=== PATIENT | male | born 1980 | race Caucasian/White ===

== ENCOUNTER → 2016-03-11 15:47 | Outpatient (CLI) | payer OTHER ==
[~2016-03-11 15:47] MED LIST: IMURAN50 MG PO; LIALDA1.2 G PO; PREDNISONE10 MG PO
[2016-03-11 16:10] LABS: BASOPHILS 0.3 % (0.0-2.0); EOSINOPHILS 5.2 % (0-7); HEMATOCRIT 45.5 % (42.0-54.0); HEMOGLOBIN 15.6 g/dL (13.5-17.5); IMMATURE GRANULOCYTES 0.1 % (0-5); LYMPHOCYTES 22.1 % (15-50); MCH 33.5 pg (26.0-34.0); MCHC 34.3 g/dL (31.0-37.0); MCV 97.6 fL (80.0-100.0); MEAN PLATELET VOLUME 8.8 fL (7.4-10.4); MONOCYTES 7.6 % (2-11); NEUTROPHILS 64.7 % (40-80); PLATELET COUNT 214 10x3/uL (130-400); RBC 4.66 10x6/uL (4.20-6.10); RDW 12.8 % (11.5-14.5); WBC 7.7 10x3/uL (4.8-10.8)
[2016-03-11 16:35] LABS: ALBUMIN 3.9 g/dL (3.4-5.0); ALKALINE PHOSPHATASE 56 U/L (46-116); ALT (SGPT) 31 U/L (10-68); BILIRUBIN - TOTAL 0.33 mg/dL (0.2-1.3); CALC OSMOLALITY 288 mosm/kg (275-300); CALCIUM 8.8 mg/dL (8.5-10.1); CARBON DIOXIDE 32.4 mmol/L (21.0-32.0); CHLORIDE - SERUM 106 mmol/L (98-107); CREATININE - SERUM 1.1 mg/dL (0.6-1.3); GLUCOSE 94 mg/dL (74-106); POTASSIUM - SERUM 3.7 mmol/L (3.5-5.1); PROTEIN - SERUM 7.2 g/dL (6.4-8.2); SODIUM 144 mmol/L (136-145); UREA NITROGEN 18 mg/dL (7-18); eGFR NON AFRICAN AMERICAN 80 mL/min (90-120)
[2016-03-11 17:39] LABS: ERYTHROCYTE SEDIMENTATION RATE 2 mm/hr (0-15)
[2016-03-26 11:57] VITALS: BMI 24.9
== END | disposition home or self-care (01) ==
LOC: D.LAB 15:47
PROVIDERS: Internal Medicine Gastroenterology
DX: K51.90 Ulcerative colitis, unspecified, without complications (principal); R10.9 Unspecified abdominal pain; R19.7 Diarrhea, unspecified; K92.1 Melena

== ENCOUNTER 2016-03-26 10:51 | Day surgery (SDC) | payer OTHER ==
[~2016-03-26] VITALS: Ht 162.6 cm; Wt 65.9 kg
[2016-03-26 11:36] LABS: BASOPHILS 0 % (0.0-2.0); EOSINOPHILS 0.2 % (0-7); HEMATOCRIT 48.6 % (42.0-54.0); HEMOGLOBIN 16.9 g/dL (13.5-17.5); IMMATURE GRANULOCYTES 0.5 % (0-5); LYMPHOCYTES 22.3 % (15-50); MCH 33.7 pg (26.0-34.0); MCHC 34.8 g/dL (31.0-37.0); MCV 96.8 fL (80.0-100.0); MEAN PLATELET VOLUME 9.3 fL (7.4-10.4); MONOCYTES 6.6 % (2-11); NEUTROPHILS 70.4 % (40-80); PLATELET COUNT 278 10x3/uL (130-400); RBC 5.02 10x6/uL (4.20-6.10); RDW 12.8 % (11.5-14.5); WBC 10.2 10x3/uL (4.8-10.8)
[2016-03-26 11:48] LABS: CALC OSMOLALITY 277 mosm/kg (275-300); CALCIUM 9.4 mg/dL (8.5-10.1); CARBON DIOXIDE 29.9 mmol/L (21.0-32.0); CHLORIDE - SERUM 101 mmol/L (98-107); CREATININE - SERUM 1.1 mg/dL (0.6-1.3); GLUCOSE 93 mg/dL (74-106); POTASSIUM - SERUM 3.4 mmol/L (3.5-5.1); SODIUM 139 mmol/L (136-145); UREA NITROGEN 13 mg/dL (7-18); eGFR NON AFRICAN AMERICAN 80 mL/min (90-120)
[2016-03-26] MEDS ORDERED: PREDNISONE10 MG PO (11:51)
[2016-03-26] MEDS ORDERED: IMURAN50 MG PO (11:51)
[2016-03-26] MEDS ORDERED: LIALDA1.2 G PO (11:51)
[2016-03-26 11:57] VITALS: BP 130/87; Ht 162.6 cm; Wt 65.9 kg
--- NOTE | 2016-03-26 13:58 | NUR ---
1358 BACK FROM COLONOSCOPY AND VERY SLEEPY. RESP EVEN AND NONLABORED, DENIES PAIN. ENCOURAGED TO PASS AIR.
--- NOTE | 2016-03-26 14:06 | NUR ---
1405 PASSED AIR. FULL LIQUIDS SERVED.
--- NOTE | 2016-03-26 14:18 | NUR ---
1413 TOLERATED FULL LIQUIDS AND PASSED AIR.
--- NOTE | 2016-03-26 14:31 | NUR ---
1428 DAPHNEY DIET UP AND VOIDED.
--- NOTE | 2016-03-26 15:06 | NUR ---
1500 PATIENT DRESSED AND WAITING FOR DR. ASHRAF TO ROUND. NO NEEDS VOICED.
--- NOTE | 2016-03-26 15:42 | NUR ---
1530 UPDATED PATIENT AND FAMILY THAT MD WILL ROUND SHORTLY,NO NEEDS VOICED.
--- NOTE | 2016-03-26 17:14 | NUR ---
1605 DR. ASHRAF ROUNDED.
--- NOTE | 2016-03-26 17:14 | NUR ---
1625 IV DCD CATHETER INTACT.DISCHARGE INSTRUCTIONS GIVEN AND VERBALLY UNDERSTANDS.1630 TO HOME VIA W/C WITH .
--- NOTE | 2016-04-29 11:24 | OP ---
PATIENT NAME: TOYIN ANGLIN MEDICAL RECORD: [id number] :78 LOCATION:D.OPS ADMISSION DATE: SURGEON: ISABEL QUINONES MD DATE OF OPERATION: 03/26/2016 PROCEDURE: Colonoscopy with biopsy. [employer] OBJECTS CONSULTANT: Isabel Quinones MD SCOPE: Olympus video colonoscope. MEDICATIONS: Per TIVA. The patient has ulcerative colitis, arthritis, and has received 410 mg of propofol IV push for this procedure, O2 of 4 liters, lidocaine 100 mg IV push. INDICATION FOR THE PROCEDURE: Ulcerative colitis since 2008. The patient takes Lialda, azathioprine 100 mg a day and has had a few prednisone tapers over the last 12 months. FINDINGS: Informed consent was given. The patient was made comfortable with the above medications. After reaching an adequate level of sedation by slow IV push, the patient was placed on his left side. The rectal exam revealed good sphincter tone, no fissures or fistulas were appreciated, no external skin tags were seen. The colonoscope was advanced to the cecum where the ileocecal valve and appendiceal orifice were identified. The small bowel was intubated. Tissue was normal, but since this is a surveillance procedure, we biopsied the terminal ileum looking for any backwash ileitis. We also biopsied the right colon, transverse colon, left colon and rectum all separately. The patient only had inflammation within the rectal vault to a mild degree, but the tissue was very friable and bleeding occurred with biopsies. On retroflexion and final withdrawal of the scope, minimal internal hemorrhoids were appreciated. IMPRESSION: 1. 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 Except for the rectum, tissue did appear to be fairly normal. 2. Very mild internal hemorrhoids. PLAN: 1. At this point, we will ask the patient to continue his present medications until his pathology report has been received and reviewed and then it will be prudent to adjust his medicines. We will do this in a clinic visit in 2 weeks. 2. Multivitamin with folic acid. 3. No anti-inflammatory drugs if possible please. Return to clinic in 2 weeks. TRANSINT:[id number] Voice Confirmation ID: [id number] DOCUMENT ID: [id number] CC: Stormy Coy APRN OPERATIVE REPORT [id number] TOYIN ANGLIN BRENDA MD at 1124 CC: [id number] DICTATION DATE: 03/26/16 1341 SUPERVISOR POLICY CHANGE CLERKS: 03/26/16 1617 [facility] 03/26/16 [id number] [place] [address]
== END 2016-03-26 16:30 | disposition home or self-care (01) ==
LOC: D.OPS 10:51
PROVIDERS: Internal Medicine Gastroenterology
DX: K51.90 Ulcerative colitis, unspecified, without complications (principal); K62.89 Other specified diseases of anus and rectum; K64.8 Other hemorrhoids

== ENCOUNTER → 2016-07-03 11:51 | Outpatient (CLI) | payer OTHER ==
[2016-03-26 11:57] VITALS: BMI 24.9
[2016-07-03 12:18] LABS: BASOPHILS 0.3 % (0-2); EOSINOPHILS 4.9 % (0-7); HEMATOCRIT 43.4 % (42.0-54.0); HEMOGLOBIN 15.1 g/dL (13.5-17.5); IMMATURE GRANULOCYTES 0.1 % (0-5); LYMPHOCYTES 21.2 % (15-50); MCH 32.5 pg (26.0-34.0); MCHC 34.8 g/dL (31.0-37.0); MCV 93.3 fL (80.0-100.0); MEAN PLATELET VOLUME 8.9 fL (7.4-10.4); MONOCYTES 10.4 % (2-11); NEUTROPHILS 63.1 % (40-80); RBC 4.65 10x6/uL (4.20-6.10); RDW 12.2 % (11.5-14.5); WBC 6.7 10x3/uL (4.8-10.8)
[2016-07-03 12:36] LABS: ALBUMIN 3.8 g/dL (3.4-5.0); ALKALINE PHOSPHATASE 67 U/L (46-116); ALT (SGPT) 39 U/L (10-68); BILIRUBIN - TOTAL 0.58 mg/dL (0.2-1.3); CALC OSMOLALITY 286 mosm/kg (275-300); CALCIUM 8.6 mg/dL (8.5-10.1); CARBON DIOXIDE 33.3 mmol/L (21.0-32.0); CHLORIDE - SERUM 106 mmol/L (98-107); CREATININE - SERUM 1.1 mg/dL (0.6-1.3); GLUCOSE 97 mg/dL (74-106); POTASSIUM - SERUM 3.8 mmol/L (3.5-5.1); SODIUM 143 mmol/L (136-145); UREA NITROGEN 18 mg/dL (7-18); eGFR NON AFRICAN AMERICAN 80 mL/min (90-120)
[2016-07-03 12:40] LABS: PLATELET COUNT 219 10x3/uL (130-400)
[2016-07-03 14:53] LABS: ERYTHROCYTE SEDIMENTATION RATE 3 mm/hr (0-15)
== END | disposition home or self-care (01) ==
LOC: D.LAB 11:51
PROVIDERS: Internal Medicine Gastroenterology
DX: K51.90 Ulcerative colitis, unspecified, without complications (principal)

== ENCOUNTER → 2016-10-08 11:12 | Outpatient (CLI) | payer OTHER ==
[2016-03-26 11:57] VITALS: BMI 24.9
[2016-10-08 11:33] LABS: BASOPHILS 0.5 % (0-2); EOSINOPHILS 8.8 % (0-7); HEMATOCRIT 44.9 % (42.0-54.0); HEMOGLOBIN 15.6 g/dL (13.5-17.5); IMMATURE GRANULOCYTES 0.3 % (0-5); LYMPHOCYTES 33.8 % (15-50); MCH 31.8 pg (26.0-34.0); MCHC 34.7 g/dL (31.0-37.0); MCV 91.6 fL (80.0-100.0); MEAN PLATELET VOLUME 8.8 fL (7.4-10.4); MONOCYTES 8.8 % (2-11); NEUTROPHILS 47.8 % (40-80); PLATELET COUNT 210 10x3/uL (130-400); RDW 12.3 % (11.5-14.5); WBC 5.9 10x3/uL (4.8-10.8)
== END | disposition home or self-care (01) ==
LOC: D.LAB 08:00
PROVIDERS: Internal Medicine Gastroenterology
DX: K51.90 Ulcerative colitis, unspecified, without complications (principal)

== ENCOUNTER → 2016-10-15 14:12 | Outpatient (CLI) | payer OTHER ==
[2016-03-26 11:57] VITALS: BMI 24.9
[2016-10-15 14:35] LABS: BASOPHILS 0.3 % (0-2); EOSINOPHILS 9.5 % (0-7); HEMATOCRIT 43.6 % (42.0-54.0); HEMOGLOBIN 14.9 g/dL (13.5-17.5); IMMATURE GRANULOCYTES 0.1 % (0-5); LYMPHOCYTES 25.1 % (15-50); MCH 31.7 pg (26.0-34.0); MCHC 34.2 g/dL (31.0-37.0); MCV 92.8 fL (80.0-100.0); PLATELET COUNT 205 10x3/uL (130-400); RDW 12.2 % (11.5-14.5); WBC 7.3 10x3/uL (4.8-10.8)
== END | disposition home or self-care (01) ==
LOC: D.LAB 08:00
PROVIDERS: Internal Medicine Gastroenterology
DX: K51.90 Ulcerative colitis, unspecified, without complications (principal)

== ENCOUNTER → 2016-10-22 15:36 | Outpatient (CLI) | payer OTHER ==
[2016-03-26 11:57] VITALS: BMI 24.9
[2016-10-22 15:53] LABS: BASOPHILS 0.3 % (0-2); EOSINOPHILS 13.1 % (0-7); HEMATOCRIT 43.7 % (42.0-54.0); HEMOGLOBIN 15.1 g/dL (13.5-17.5); IMMATURE GRANULOCYTES 0.2 % (0-5); MCH 31.7 pg (26.0-34.0); MCHC 34.6 g/dL (31.0-37.0); MCV 91.8 fL (80.0-100.0); MEAN PLATELET VOLUME 8.9 fL (7.4-10.4); MONOCYTES 7.7 % (2-11); NEUTROPHILS 49.7 % (40-80); PLATELET COUNT 242 10x3/uL (130-400); RBC 4.76 10x6/uL (4.20-6.10); RDW 12.4 % (11.5-14.5)
== END | disposition home or self-care (01) ==
LOC: D.LAB 08:00
PROVIDERS: Internal Medicine Gastroenterology
DX: K51.90 Ulcerative colitis, unspecified, without complications (principal)

== ENCOUNTER → 2016-10-29 17:12 | Outpatient (CLI) | payer OTHER ==
[2016-03-26 11:57] VITALS: BMI 24.9
[2016-10-29 17:46] LABS: BASOPHILS 0.3 % (0-2); EOSINOPHILS 11.1 % (0-7); HEMATOCRIT 42.1 % (42.0-54.0); HEMOGLOBIN 14.7 g/dL (13.5-17.5); IMMATURE GRANULOCYTES 0.3 % (0-5); LYMPHOCYTES 32.6 % (15-50); MCH 32.2 pg (26.0-34.0); MCHC 34.9 g/dL (31.0-37.0); MCV 92.3 fL (80.0-100.0); MEAN PLATELET VOLUME 9.1 fL (7.4-10.4); MONOCYTES 6.2 % (2-11); NEUTROPHILS 49.5 % (40-80); PLATELET COUNT 268 10x3/uL (130-400); RBC 4.56 10x6/uL (4.20-6.10); RDW 12.6 % (11.5-14.5); WBC 6.4 10x3/uL (4.8-10.8)
== END | disposition home or self-care (01) ==
LOC: D.LAB 08:00
PROVIDERS: Internal Medicine Gastroenterology
DX: K51.90 Ulcerative colitis, unspecified, without complications (principal)

== ENCOUNTER → 2016-11-12 17:05 | Outpatient (CLI) | payer OTHER ==
[2016-03-26 11:57] VITALS: BMI 24.9
[2016-11-12 17:28] LABS: BASOPHILS 0.3 % (0-2); EOSINOPHILS 9.7 % (0-7); HEMATOCRIT 43.8 % (42.0-54.0); HEMOGLOBIN 15.3 g/dL (13.5-17.5); IMMATURE GRANULOCYTES 0.1 % (0-5); LYMPHOCYTES 25.5 % (15-50); MCH 32.3 pg (26.0-34.0); MCHC 34.9 g/dL (31.0-37.0); MCV 92.4 fL (80.0-100.0); MONOCYTES 7.5 % (2-11); NEUTROPHILS 56.9 % (40-80); PLATELET COUNT 245 10x3/uL (130-400); RBC 4.74 10x6/uL (4.20-6.10); RDW 12.6 % (11.5-14.5); WBC 7.3 10x3/uL (4.8-10.8)
== END | disposition home or self-care (01) ==
LOC: D.LAB 08:00
PROVIDERS: Internal Medicine Gastroenterology
DX: K51.90 Ulcerative colitis, unspecified, without complications (principal)

== ENCOUNTER → 2016-11-26 10:33 | Outpatient (CLI) | payer OTHER ==
[2016-03-26 11:57] VITALS: BMI 24.9
[2016-11-26 10:55] LABS: BASOPHILS 0.3 % (0-2); EOSINOPHILS 10.6 % (0-7); IMMATURE GRANULOCYTES 0.2 % (0-5); LYMPHOCYTES 24.9 % (15-50); MCH 32.4 pg (26.0-34.0); MCHC 34.9 g/dL (31.0-37.0); MCV 92.9 fL (80.0-100.0); MEAN PLATELET VOLUME 8.5 fL (7.4-10.4); MONOCYTES 8.5 % (2-11); NEUTROPHILS 55.5 % (40-80); PLATELET COUNT 233 10x3/uL (130-400); RBC 4.63 10x6/uL (4.20-6.10); RDW 12.7 % (11.5-14.5); WBC 6.6 10x3/uL (4.8-10.8)
== END | disposition home or self-care (01) ==
LOC: D.LAB 08:00
PROVIDERS: Internal Medicine Gastroenterology
DX: K51.90 Ulcerative colitis, unspecified, without complications (principal)

== ENCOUNTER → 2016-12-10 12:17 | Outpatient (CLI) | payer OTHER ==
[2016-03-26 11:57] VITALS: BMI 24.9
[2016-12-10 12:44] LABS: BASOPHILS 0.6 % (0-2); EOSINOPHILS 7.2 % (0-7); HEMATOCRIT 43.1 % (42.0-54.0); HEMOGLOBIN 15.1 g/dL (13.5-17.5); IMMATURE GRANULOCYTES 0.2 % (0-5); LYMPHOCYTES 33.8 % (15-50); MCH 32.5 pg (26.0-34.0); MCV 92.7 fL (80.0-100.0); MEAN PLATELET VOLUME 8.7 fL (7.4-10.4); MONOCYTES 7.2 % (2-11); PLATELET COUNT 224 10x3/uL (130-400); RBC 4.65 10x6/uL (4.20-6.10); RDW 12.8 % (11.5-14.5); WBC 4.9 10x3/uL (4.8-10.8)
== END | disposition home or self-care (01) ==
LOC: D.LAB 08:00
PROVIDERS: Internal Medicine Gastroenterology
DX: K51.90 Ulcerative colitis, unspecified, without complications (principal)

== ENCOUNTER → 2016-12-24 10:02 | Outpatient (CLI) | payer OTHER ==
[2016-03-26 11:57] VITALS: BMI 24.9
[2016-12-24 10:40] LABS: BASOPHILS 0.6 % (0-2); EOSINOPHILS 8.1 % (0-7); HEMATOCRIT 46.5 % (42.0-54.0); HEMOGLOBIN 16.2 g/dL (13.5-17.5); IMMATURE GRANULOCYTES 0.2 % (0-5); LYMPHOCYTES 37.5 % (15-50); MCH 32.5 pg (26.0-34.0); MCHC 34.8 g/dL (31.0-37.0); MCV 93.2 fL (80.0-100.0); MEAN PLATELET VOLUME 9.2 fL (7.4-10.4); MONOCYTES 11.6 % (2-11); PLATELET COUNT 236 10x3/uL (130-400); RBC 4.99 10x6/uL (4.20-6.10); RDW 12.4 % (11.5-14.5); WBC 4.7 10x3/uL (4.8-10.8)
== END | disposition home or self-care (01) ==
LOC: D.LAB 08:00
PROVIDERS: Internal Medicine Gastroenterology
DX: K51.90 Ulcerative colitis, unspecified, without complications (principal)

== ENCOUNTER → 2017-02-26 09:23 | Outpatient (CLI) | payer OTHER ==
[2016-03-26 11:57] VITALS: BMI 24.9
[2017-02-26 10:06] LABS: ALBUMIN 4.2 g/dL (3.4-5.0); ALKALINE PHOSPHATASE 60 U/L (46-116); ALT (SGPT) 45 U/L (10-68); BILIRUBIN - TOTAL 0.35 mg/dL (0.2-1.3); CALC OSMOLALITY 279 mosm/kg (275-300); CALCIUM 9.1 mg/dL (8.5-10.1); CARBON DIOXIDE 31.4 mmol/L (21.0-32.0); CHLORIDE - SERUM 101 mmol/L (98-107); CREATININE - SERUM 1.1 mg/dL (0.6-1.3); GLUCOSE 103 mg/dL (74-106); POTASSIUM - SERUM 4.3 mmol/L (3.5-5.1); PROTEIN - SERUM 7.9 g/dL (6.4-8.2); SODIUM 140 mmol/L (136-145); UREA NITROGEN 16 mg/dL (7-18); eGFR NON AFRICAN AMERICAN 80 mL/min (90-120)
[2017-02-26 10:50] LABS: ERYTHROCYTE SEDIMENTATION RATE 1 mm/hr (0-15)
== END | disposition home or self-care (01) ==
LOC: D.LAB 09:23
PROVIDERS: Internal Medicine Gastroenterology
DX: K51.90 Ulcerative colitis, unspecified, without complications (principal)

== ENCOUNTER → 2017-03-30 11:26 | Outpatient (CLI) | payer OTHER ==
[2016-03-26 11:57] VITALS: BMI 24.9
[2017-03-30 12:06] LABS: ALBUMIN 4.3 g/dL (3.4-5.0); ALKALINE PHOSPHATASE 55 U/L (46-116); ALT (SGPT) 25 U/L (10-68); CALC OSMOLALITY 284 mosm/kg (275-300); CALCIUM 8.7 mg/dL (8.5-10.1); CARBON DIOXIDE 29.4 mmol/L (21.0-32.0); CHLORIDE - SERUM 104 mmol/L (98-107); CREATININE - SERUM 0.9 mg/dL (0.6-1.3); GLUCOSE 102 mg/dL (74-106); POTASSIUM - SERUM 4.1 mmol/L (3.5-5.1); PROTEIN - SERUM 7.6 g/dL (6.4-8.2); SODIUM 142 mmol/L (136-145); UREA NITROGEN 19 mg/dL (7-18); eGFR NON AFRICAN AMERICAN > 90 mL/min (90-120)
[2017-03-30 12:46] LABS: ERYTHROCYTE SEDIMENTATION RATE 1 mm/hr (0-15)
== END | disposition home or self-care (01) ==
LOC: D.LAB 11:26
PROVIDERS: Internal Medicine Gastroenterology
DX: K51.90 Ulcerative colitis, unspecified, without complications (principal)

== ENCOUNTER → 2017-05-05 12:53 | Outpatient (CLI) | payer OTHER ==
[2016-03-26 11:57] VITALS: BMI 24.9
[2017-05-05 13:43] LABS: ALBUMIN 4.2 g/dL (3.4-5.0); ALKALINE PHOSPHATASE 62 U/L (46-116); ALT (SGPT) 25 U/L (10-68); BILIRUBIN - TOTAL 0.38 mg/dL (0.2-1.3); CALCIUM 8.9 mg/dL (8.5-10.1); CARBON DIOXIDE 30.1 mmol/L (21.0-32.0); CHLORIDE - SERUM 105 mmol/L (98-107); CREATININE - SERUM 1.1 mg/dL (0.6-1.3); POTASSIUM - SERUM 3.8 mmol/L (3.5-5.1); PROTEIN - SERUM 7.6 g/dL (6.4-8.2); SODIUM 144 mmol/L (136-145); UREA NITROGEN 22 mg/dL (7-18); eGFR NON AFRICAN AMERICAN 80 mL/min (90-120)
[2017-05-05 13:49] LABS: CALC OSMOLALITY 287 mosm/kg (275-300); GLUCOSE 55 mg/dL (74-106)
[2017-05-05 14:13] LABS: ERYTHROCYTE SEDIMENTATION RATE 1 mm/hr (0-15)
== END | disposition home or self-care (01) ==
LOC: D.LAB 12:53
PROVIDERS: Internal Medicine Gastroenterology
DX: K51.90 Ulcerative colitis, unspecified, without complications (principal)

== ENCOUNTER → 2017-05-27 14:34 | Outpatient (CLI) | payer OTHER ==
[2016-03-26 11:57] VITALS: BMI 24.9
[2017-05-27 15:11] LABS: ALBUMIN 3.9 g/dL (3.4-5.0); ALKALINE PHOSPHATASE 59 U/L (46-116); ALT (SGPT) 33 U/L (10-68); CALC OSMOLALITY 283 mosm/kg (275-300); CARBON DIOXIDE 29.5 mmol/L (21.0-32.0); CHLORIDE - SERUM 106 mmol/L (98-107); GLUCOSE 96 mg/dL (74-106); POTASSIUM - SERUM 4.1 mmol/L (3.5-5.1); PROTEIN - SERUM 7.5 g/dL (6.4-8.2); SODIUM 141 mmol/L (136-145); UREA NITROGEN 22 mg/dL (7-18); eGFR NON AFRICAN AMERICAN 89 mL/min (90-120)
[2017-05-27 15:58] LABS: ERYTHROCYTE SEDIMENTATION RATE 5 mm/hr (0-15)
== END | disposition home or self-care (01) ==
LOC: D.LAB 14:34
PROVIDERS: Internal Medicine Gastroenterology
DX: K51.90 Ulcerative colitis, unspecified, without complications (principal)

== ENCOUNTER → 2017-06-25 10:36 | Outpatient (CLI) | payer OTHER ==
[2016-03-26 11:57] VITALS: BMI 24.9
[2017-06-25 11:26] LABS: ALBUMIN 3.7 g/dL (3.4-5.0); ALKALINE PHOSPHATASE 59 U/L (46-116); ALT (SGPT) 23 U/L (10-68); BILIRUBIN - TOTAL 0.25 mg/dL (0.2-1.3); CALC OSMOLALITY 282 mosm/kg (275-300); CALCIUM 8.6 mg/dL (8.5-10.1); CARBON DIOXIDE 27.9 mmol/L (21.0-32.0); CHLORIDE - SERUM 103 mmol/L (98-107); GLUCOSE 92 mg/dL (74-106); POTASSIUM - SERUM 4.2 mmol/L (3.5-5.1); PROTEIN - SERUM 7.8 g/dL (6.4-8.2); SODIUM 141 mmol/L (136-145); UREA NITROGEN 19 mg/dL (7-18); eGFR NON AFRICAN AMERICAN 89 mL/min (90-120)
[2017-06-25 12:10] LABS: ERYTHROCYTE SEDIMENTATION RATE 9 mm/hr (0-15)
== END | disposition home or self-care (01) ==
LOC: D.LAB 10:36
PROVIDERS: Internal Medicine Gastroenterology
DX: K51.90 Ulcerative colitis, unspecified, without complications (principal)

== ENCOUNTER → 2017-07-28 13:53 | Outpatient (CLI) | payer OTHER ==
[2016-03-26 11:57] VITALS: BMI 24.9
[2017-07-28 14:38] LABS: ALBUMIN 3.6 g/dL (3.4-5.0); ALKALINE PHOSPHATASE 70 U/L (46-116); ALT (SGPT) 25 U/L (10-68); BILIRUBIN - TOTAL 0.25 mg/dL (0.2-1.3); CALC OSMOLALITY 283 mosm/kg (275-300); CALCIUM 8.7 mg/dL (8.5-10.1); CARBON DIOXIDE 29.1 mmol/L (21.0-32.0); CHLORIDE - SERUM 103 mmol/L (98-107); GLUCOSE 98 mg/dL (74-106); PROTEIN - SERUM 6.9 g/dL (6.4-8.2); SODIUM 142 mmol/L (136-145); UREA NITROGEN 15 mg/dL (7-18); eGFR NON AFRICAN AMERICAN 89 mL/min (90-120)
[2017-07-28 15:36] LABS: ERYTHROCYTE SEDIMENTATION RATE 8 mm/hr (0-15)
== END | disposition home or self-care (01) ==
LOC: D.LAB 13:53
PROVIDERS: Internal Medicine Gastroenterology
DX: K51.90 Ulcerative colitis, unspecified, without complications (principal)

== ENCOUNTER → 2017-09-08 14:47 | Outpatient (CLI) | payer OTHER ==
[2016-03-26 11:57] VITALS: BMI 24.9
[2017-09-08 15:26] LABS: BASOPHILS 0.6 % (0-2); EOSINOPHILS 7.3 % (0-7); HEMATOCRIT 42.2 % (42.0-54.0); HEMOGLOBIN 14.9 g/dL (13.5-17.5); IMMATURE GRANULOCYTES 0.2 % (0-5); LYMPHOCYTES 33.6 % (15-50); MCH 32.2 pg (26.0-34.0); MCHC 35.3 g/dL (31.0-37.0); MCV 91.1 fL (80.0-100.0); MEAN PLATELET VOLUME 9.2 fL (7.4-10.4); MONOCYTES 7.3 % (2-11); PLATELET COUNT 246 10x3/uL (130-400); RBC 4.63 10x6/uL (4.20-6.10); RDW 12.6 % (11.5-14.5); WBC 6.5 10x3/uL (4.8-10.8)
[2017-09-08 15:48] LABS: ALBUMIN 3.9 g/dL (3.4-5.0); ALKALINE PHOSPHATASE 69 U/L (46-116); ALT (SGPT) 23 U/L (10-68); BILIRUBIN - TOTAL 0.34 mg/dL (0.2-1.3); CALC OSMOLALITY 284 mosm/kg (275-300); CALCIUM 8.4 mg/dL (8.5-10.1); CARBON DIOXIDE 28.9 mmol/L (21.0-32.0); CHLORIDE - SERUM 107 mmol/L (98-107); GLUCOSE 82 mg/dL (74-106); POTASSIUM - SERUM 4.1 mmol/L (3.5-5.1); PROTEIN - SERUM 7.2 g/dL (6.4-8.2); SODIUM 143 mmol/L (136-145); UREA NITROGEN 16 mg/dL (7-18); eGFR NON AFRICAN AMERICAN 89 mL/min (90-120)
== END | disposition home or self-care (01) ==
LOC: D.LAB 14:47
PROVIDERS: Internal Medicine Gastroenterology
DX: K51.90 Ulcerative colitis, unspecified, without complications (principal)

== ENCOUNTER → 2017-11-03 15:36 | Outpatient (CLI) | payer OTHER ==
[2016-03-26 11:57] VITALS: BMI 24.9
[2017-11-03 16:28] LABS: BASOPHILS 0.4 % (0-2); EOSINOPHILS 7.5 % (0-7); HEMOGLOBIN 15.6 g/dL (13.5-17.5); IMMATURE GRANULOCYTES 0.1 % (0-5); LYMPHOCYTES 26.5 % (15-50); MCH 32.1 pg (26.0-34.0); MCHC 35.5 g/dL (31.0-37.0); MCV 90.5 fL (80.0-100.0); MEAN PLATELET VOLUME 9.2 fL (7.4-10.4); MONOCYTES 7.6 % (2-11); NEUTROPHILS 57.9 % (40-80); PLATELET COUNT 226 10x3/uL (130-400); RBC 4.86 10x6/uL (4.20-6.10); RDW 12.4 % (11.5-14.5); WBC 7.5 10x3/uL (4.8-10.8)
[2017-11-03 16:54] LABS: ALBUMIN 3.9 g/dL (3.4-5.0); ALKALINE PHOSPHATASE 59 U/L (46-116); ALT (SGPT) 33 U/L (10-68); BILIRUBIN - TOTAL 0.33 mg/dL (0.2-1.3); CALC OSMOLALITY 278 mosm/kg (275-300); CALCIUM 8.3 mg/dL (8.5-10.1); CARBON DIOXIDE 25.9 mmol/L (21.0-32.0); CHLORIDE - SERUM 105 mmol/L (98-107); GLUCOSE 92 mg/dL (74-106); POTASSIUM - SERUM 4.1 mmol/L (3.5-5.1); PROTEIN - SERUM 7.3 g/dL (6.4-8.2); SODIUM 139 mmol/L (136-145); UREA NITROGEN 15 mg/dL (7-18); eGFR NON AFRICAN AMERICAN 89 mL/min (90-120)
== END | disposition home or self-care (01) ==
LOC: D.LAB 08-19 11:45
PROVIDERS: Internal Medicine Gastroenterology
DX: K51.90 Ulcerative colitis, unspecified, without complications (principal)

== ENCOUNTER → 2017-11-23 08:49 | Outpatient (CLI) | payer OTHER ==
[2016-03-26 11:57] VITALS: BMI 24.9
[2017-11-23 09:03] LABS: BASOPHILS 0.6 % (0-2); EOSINOPHILS 9.8 % (0-7); HEMATOCRIT 45.3 % (42.0-54.0); HEMOGLOBIN 15.8 g/dL (13.5-17.5); IMMATURE GRANULOCYTES 0.2 % (0-5); LYMPHOCYTES 29.5 % (15-50); MCH 31.8 pg (26.0-34.0); MCHC 34.9 g/dL (31.0-37.0); MCV 91.1 fL (80.0-100.0); MEAN PLATELET VOLUME 8.8 fL (7.4-10.4); MONOCYTES 11.1 % (2-11); NEUTROPHILS 48.8 % (40-80); PLATELET COUNT 229 10x3/uL (130-400); RBC 4.97 10x6/uL (4.20-6.10); RDW 12.7 % (11.5-14.5); WBC 5.3 10x3/uL (4.8-10.8)
[2017-11-23 09:22] LABS: ALBUMIN 3.9 g/dL (3.4-5.0); ALKALINE PHOSPHATASE 51 U/L (46-116); ALT (SGPT) 25 U/L (10-68); CALC OSMOLALITY 276 mosm/kg (275-300); CALCIUM 8.5 mg/dL (8.5-10.1); CARBON DIOXIDE 28.5 mmol/L (21.0-32.0); CHLORIDE - SERUM 104 mmol/L (98-107); CREATININE - SERUM 1.1 mg/dL (0.6-1.3); GLUCOSE 101 mg/dL (74-106); POTASSIUM - SERUM 3.9 mmol/L (3.5-5.1); PROTEIN - SERUM 7.6 g/dL (6.4-8.2); SODIUM 138 mmol/L (136-145); UREA NITROGEN 15 mg/dL (7-18); eGFR NON AFRICAN AMERICAN 80 mL/min (90-120)
== END | disposition home or self-care (01) ==
LOC: D.LAB 08:49
PROVIDERS: Internal Medicine Gastroenterology
DX: K51.90 Ulcerative colitis, unspecified, without complications (principal)

== ENCOUNTER → 2018-01-13 15:28 | Outpatient (CLI) | payer OTHER ==
[2016-03-26 11:57] VITALS: BMI 24.9
[2018-01-13 16:12] LABS: BASOPHILS 0.4 % (0-2); EOSINOPHILS 6.7 % (0-7); HEMATOCRIT 43.7 % (42.0-54.0); HEMOGLOBIN 15.2 g/dL (13.5-17.5); IMMATURE GRANULOCYTES 0.1 % (0-5); LYMPHOCYTES 24.6 % (15-50); MCH 32.1 pg (26.0-34.0); MCHC 34.8 g/dL (31.0-37.0); MCV 92.2 fL (80.0-100.0); MONOCYTES 6.7 % (2-11); NEUTROPHILS 61.5 % (40-80); PLATELET COUNT 268 10x3/uL (130-400); RBC 4.74 10x6/uL (4.20-6.10); RDW 12.6 % (11.5-14.5); WBC 8.1 10x3/uL (4.8-10.8)
[2018-01-13 16:27] LABS: ALBUMIN 3.9 g/dL (3.4-5.0); ALKALINE PHOSPHATASE 61 U/L (46-116); ALT (SGPT) 29 U/L (10-68); BILIRUBIN - TOTAL 0.29 mg/dL (0.2-1.3); CALC OSMOLALITY 282 mosm/kg (275-300); CALCIUM 8.8 mg/dL (8.5-10.1); CARBON DIOXIDE 30.8 mmol/L (21.0-32.0); CHLORIDE - SERUM 105 mmol/L (98-107); CREATININE - SERUM 1.1 mg/dL (0.6-1.3); GLUCOSE 107 mg/dL (74-106); POTASSIUM - SERUM 4.2 mmol/L (3.5-5.1); PROTEIN - SERUM 7.4 g/dL (6.4-8.2); SODIUM 141 mmol/L (136-145); UREA NITROGEN 17 mg/dL (7-18); eGFR NON AFRICAN AMERICAN 79 mL/min (90-120)
== END | disposition home or self-care (01) ==
LOC: D.LABREF 15:28
PROVIDERS: Internal Medicine Gastroenterology
DX: K51.90 Ulcerative colitis, unspecified, without complications (principal)

== ENCOUNTER → 2018-02-09 10:56 | Outpatient (CLI) | payer OTHER ==
[2016-03-26 11:57] VITALS: BMI 24.9
[2018-02-09 11:24] LABS: BASOPHILS 1.1 % (0-2); EOSINOPHILS 7.4 % (0-7); HEMATOCRIT 44.7 % (42.0-54.0); HEMOGLOBIN 15.7 g/dL (13.5-17.5); IMMATURE GRANULOCYTES 0.2 % (0-5); LYMPHOCYTES 33.7 % (15-50); MCH 32.3 pg (26.0-34.0); MCHC 35.1 g/dL (31.0-37.0); MEAN PLATELET VOLUME 8.9 fL (7.4-10.4); MONOCYTES 9.1 % (2-11); NEUTROPHILS 48.5 % (40-80); PLATELET COUNT 243 10x3/uL (130-400); RBC 4.86 10x6/uL (4.20-6.10); RDW 12.6 % (11.5-14.5); WBC 5.7 10x3/uL (4.8-10.8)
[2018-02-09 11:43] LABS: ALBUMIN 3.7 g/dL (3.4-5.0); ALKALINE PHOSPHATASE 60 U/L (46-116); ALT (SGPT) 41 U/L (10-68); BILIRUBIN - TOTAL 0.37 mg/dL (0.2-1.3); CALC OSMOLALITY 286 mosm/kg (275-300); CARBON DIOXIDE 29.1 mmol/L (21.0-32.0); CHLORIDE - SERUM 105 mmol/L (98-107); GLUCOSE 93 mg/dL (74-106); POTASSIUM - SERUM 4.2 mmol/L (3.5-5.1); PROTEIN - SERUM 7.6 g/dL (6.4-8.2); SODIUM 143 mmol/L (136-145); UREA NITROGEN 18 mg/dL (7-18); eGFR NON AFRICAN AMERICAN 89 mL/min (90-120)
== END | disposition home or self-care (01) ==
LOC: D.LAB 10:56
PROVIDERS: Internal Medicine Gastroenterology
DX: K51.90 Ulcerative colitis, unspecified, without complications (principal)

== ENCOUNTER → 2018-03-29 13:44 | Outpatient (CLI) | payer OTHER ==
[2016-03-26 11:57] VITALS: BMI 24.9
[2018-03-29 14:04] LABS: BASOPHILS 0.3 % (0-2); EOSINOPHILS 5.2 % (0-7); HEMATOCRIT 43.5 % (42.0-54.0); HEMOGLOBIN 15.2 g/dL (13.5-17.5); LYMPHOCYTES 24.3 % (15-50); MCH 31.8 pg (26.0-34.0); MCHC 34.9 g/dL (31.0-37.0); MEAN PLATELET VOLUME 8.6 fL (7.4-10.4); MONOCYTES 6.2 % (2-11); PLATELET COUNT 225 10x3/uL (130-400); RBC 4.78 10x6/uL (4.20-6.10); RDW 12.5 % (11.5-14.5); WBC 6.6 10x3/uL (4.8-10.8)
[2018-03-29 14:23] LABS: ALBUMIN 3.9 g/dL (3.4-5.0); ALKALINE PHOSPHATASE 58 U/L (46-116); ALT (SGPT) 26 U/L (10-68); BILIRUBIN - TOTAL 0.37 mg/dL (0.2-1.3); CALC OSMOLALITY 282 mosm/kg (275-300); CALCIUM 8.5 mg/dL (8.5-10.1); CARBON DIOXIDE 29.1 mmol/L (21.0-32.0); CHLORIDE - SERUM 104 mmol/L (98-107); CREATININE - SERUM 1.1 mg/dL (0.6-1.3); GLUCOSE 110 mg/dL (74-106); POTASSIUM - SERUM 3.5 mmol/L (3.5-5.1); PROTEIN - SERUM 7.7 g/dL (6.4-8.2); SODIUM 141 mmol/L (136-145); UREA NITROGEN 15 mg/dL (7-18); eGFR NON AFRICAN AMERICAN 79 mL/min (90-120)
== END | disposition home or self-care (01) ==
LOC: D.LAB 13:44
PROVIDERS: Internal Medicine Gastroenterology
DX: K51.90 Ulcerative colitis, unspecified, without complications (principal)

== ENCOUNTER 2018-04-14 09:48 | Day surgery (SDC) | payer OTHER ==
[~2018-04-14] VITALS: Ht 167.6 cm; Wt 68.6 kg
--- NOTE | ~2018-04-14 | OP ---
PATIENT NAME: TOYIN ANGLIN MEDICAL RECORD: [id number] :78 LOCATION:[facility] ADMISSION DATE: SURGEON: ISABEL QUINONES MD DATE OF OPERATION: 04/14/2018 PROCEDURE: EGD with balloon dilatation, EGD with biopsy. BLUNGER: Isabel Quinones MD SCOPE: Olympus video gastroscope and a CRE Microvasive balloon from 45- to 60-English. MEDICATIONS FOR THIS PROCEDURE: Propofol 190 mg IV push, O2 at 4 liters. INDICATION FOR THE PROCEDURE: Cough associated with gastroesophageal reflux disease, dysphagia. FINDINGS: Informed consent was given. The patient was made comfortable with the above medications. After reaching an adequate level of sedation by slow IV push, the patient was placed on his left side. The endoscope was then advanced under direct visualization through the posterior pharyngeal area and advanced to the distal esophagus. At the distal esophageal area, a stricture was appreciated, and after the inspection part of the EGD was completed, a CRE Microvasive balloon was placed in this area, dilated to 60 English, and held in place for one minute without complication. The gastroesophageal junction mucosa was then carefully inspected and multiple erosions were appreciated. Biopsies were obtained. A small hiatal hernia was seen both on direct and retroflexed views. On entering the stomach, mild inflammation was seen and a biopsy was taken. No ulcers or erosions were appreciated. The duodenal bulb had mild inflammation present. No ulcers or erosions were noted. Biopsies, however, were obtained due to the mild inflammatory process. The scope was then withdrawn. IMPRESSION: 1. Distal esophageal stricture, dilated to 60 English. 2. Erosive esophagitis, possible Fournier's esophagus, biopsied. 3. Small hiatal hernia. 4. Mild gastritis, biopsied. 5. Mild duodenitis, biopsied. PLAN: 1. We will place the patient on omeprazole at a dose of 20 mg p.o. q.a.m. and famotidine 40 mg p.o. at bedtime. 2. As the patient does have complaint of some oropharyngeal dysphagia, we will order video fluoroscopic swallowing study and recommend an ENT consultation with Dr. Tejada. 3. Caution with anti-inflammatory drugs. 4. For reflux precautions, the patient should avoid, if bothersome, chocolate, tomato, citrus, caffeine, fatty food, peppermint. He should not eat late at night and sit up for about 2 hours after every meal. Should he reflux at night, he should sleep with the head of the bed elevated 6 cm. TRANSINT:[id number] Voice Confirmation ID: [id number] DOCUMENT ID: [id number] OPERATIVE REPORT [id number] TOYIN ANGLIN BRENDA MD CC: JULIANA STEIN [id number] DICTATION DATE: 04/14/18 1425 SOILS TECHNICIAN: 04/14/18 1545 [facility] 04/14/18 [id number] [place] [address]
[2018-04-14 11:48] VITALS: BP 139/70; Ht 167.6 cm; Wt 68.6 kg
== END 2018-04-14 13:50 | disposition home or self-care (01) ==
LOC: D.OPS 09:48
DX: K22.2 Esophageal obstruction (principal); K21.9 Gastro-esophageal reflux disease without esophagitis; K44.9 Diaphragmatic hernia without obstruction or gangrene; K29.70 Gastritis, unspecified, without bleeding; K29.80 Duodenitis without bleeding; K22.10 Ulcer of esophagus without bleeding

== ENCOUNTER → 2018-04-28 12:27 | Outpatient (CLI) | payer OTHER ==
[2018-04-14 11:48] VITALS: BMI 24.4
[~2018-04-28 12:27] MED LIST changes: +OMEPRAZOLE DR 20 MG; +PEPCID40 MG PO
[2018-04-28 14:09] LABS: BASOPHILS 0.4 % (0-2); EOSINOPHILS 3.7 % (0-7); HEMATOCRIT 45.3 % (42.0-54.0); HEMOGLOBIN 16.1 g/dL (13.5-17.5); IMMATURE GRANULOCYTES 0.2 % (0-5); LYMPHOCYTES 20.2 % (15-50); MCH 31.9 pg (26.0-34.0); MCHC 35.5 g/dL (31.0-37.0); MCV 89.9 fL (80.0-100.0); MEAN PLATELET VOLUME 9.1 fL (7.4-10.4); MONOCYTES 6.8 % (2-11); NEUTROPHILS 68.7 % (40-80); PLATELET COUNT 251 10x3/uL (130-400); RBC 5.04 10x6/uL (4.20-6.10); RDW 12.4 % (11.5-14.5); WBC 9.7 10x3/uL (4.8-10.8)
[2018-04-28 14:36] LABS: ALBUMIN 4.4 g/dL (3.4-5.0); ALKALINE PHOSPHATASE 55 U/L (46-116); ALT (SGPT) 34 U/L (10-68); BILIRUBIN - TOTAL 0.47 mg/dL (0.2-1.3); CALC OSMOLALITY 286 mosm/kg (275-300); CALCIUM 9.1 mg/dL (8.5-10.1); CARBON DIOXIDE 28.9 mmol/L (21.0-32.0); CHLORIDE - SERUM 104 mmol/L (98-107); CREATININE - SERUM 0.9 mg/dL (0.6-1.3); GLUCOSE 100 mg/dL (74-106); PROTEIN - SERUM 7.6 g/dL (6.4-8.2); SODIUM 143 mmol/L (136-145); UREA NITROGEN 18 mg/dL (7-18); eGFR NON AFRICAN AMERICAN > 90 mL/min (90-120)
== END | disposition home or self-care (01) ==
LOC: D.RAD 12:27
PROVIDERS: ATTEND Internal Medicine Gastroenterology
DX: R13.10 Dysphagia, unspecified (principal)

== ENCOUNTER → 2018-05-03 09:20 | Day surgery (SDC) | payer OTHER ==
[~2018-05-03] VITALS: Ht 167.6 cm; Wt 65.9 kg
--- NOTE | ~2018-05-03 | OP ---
PATIENT NAME: TOYIN ANGLIN MEDICAL RECORD: [id number] :78 LOCATION:[facility] ADMISSION DATE: SURGEON: CAROLIN ASHRAF MD DATE OF OPERATION: 05/03/2018 PROCEDURE: Colonoscopy with biopsy, colonoscopy with polypectomy, and xTAG stool collection. SCOPE: Twitter video colonoscope. MEDICATIONS: Per TIVA anesthesia. The patient received 280 mg of propofol for this procedure, O2 at 4 liters. INDICATIONS FOR THE PROCEDURE: Surveillance procedure with a history of ulcerative colitis and proctitis. FINDINGS: Informed consent was given. The patient was made comfortable with the above medications. After reaching an adequate level of sedation by slow IV push, the patient was placed on his left side. The rectal exam revealed good sphincter tone. No fissures or fistulas were appreciated. No external skin tags were seen. The colonoscope was advanced to the cecum, where the ileocecal valve and appendiceal orifice were identified. The small bowel was intubated and biopsies were obtained of fairly normal-appearing tissue. We also biopsied separately the ileocecal valve as this is a surveillance procedure. Mucosa was again fairly normal in appearance. On withdrawal of the scope, mucosa was carefully inspected. The patient had normal tissue until reaching the distal sigmoid area, where mild inflammation, erythema, and edema were appreciated, significant for ulcerative colitis and biopsies were obtained. Within the rectal vault, moderate inflammation was appreciated and multiple biopsies were taken. We also saw one small benign appearing polyp in the rectal vault and removed this with hot biopsy forcep technique. On retroflexion and final withdrawal of the scope, hemorrhoids were observed. IMPRESSION: 1. Normal terminal ileum biopsied as a surveillance procedure. 2. Normal ileocecal valve tissue, biopsied. 3. Distal sigmoid inflammation to a mild degree. Biopsies obtained. 4. Rectosigmoid rectal biopsies with moderate inflammation, some erythema and edema, biopsied. 5. Small rectal polyp, hot biopsy forceps technique, 0.5 cm in size. 6. Internal hemorrhoids. PLAN: 1. Check the xTAG for bacteria, viruses, or parasites. 2. Check all the path report in this patient with a history of ulcerative colitis and proctitis. 3. Continue Lialda as well as Imuran. I note that the patient is having labs checked monthly, CBC and LFTs. 4. No anti-inflammatory drugs please. Return to clinic on a p.r.n. basis. TRANSINT:[id number] Voice Confirmation ID: [id number] DOCUMENT ID: [id number] OPERATIVE REPORT [id number] TOYIN ANGLIN BRENDA MD CC: JULIANA STEIN [id number] DICTATION DATE: 05/03/18 1100 MANGLE ROLLER: 05/03/18 111[id number] [place] [id number]
[2018-05-03 09:42] LABS: HEMATOCRIT 47.9 % (42.0-54.0); HEMOGLOBIN 16.9 g/dL (13.5-17.5); MCHC 35.3 g/dL (31.0-37.0); MCV 90.7 fL (80.0-100.0); RBC 5.28 10x6/uL (4.20-6.10); RDW 12.7 % (11.5-14.5); WBC 4.3 10x3/uL (4.8-10.8)
[2018-05-03 10:10] VITALS: Ht 167.6 cm; Wt 65.9 kg
== END | disposition home or self-care (01) ==
LOC: D.OPS 09:20
PROVIDERS: Anesthesiology; ATTEND Internal Medicine Gastroenterology
DX: Z12.11 Encounter for screening for malignant neoplasm of colon (principal); K62.1 Rectal polyp; K64.8 Other hemorrhoids; K52.9 Noninfective gastroenteritis and colitis, unspecified; Z01.812 Encounter for preprocedural laboratory examination

== ENCOUNTER → 2018-05-31 12:09 | Outpatient (CLI) | payer OTHER ==
[2018-05-03 10:10] VITALS: BMI 23.4
[2018-05-31 12:28] LABS: BASOPHILS 0.7 % (0-2); EOSINOPHILS 4.5 % (0-7); HEMATOCRIT 45.3 % (42.0-54.0); HEMOGLOBIN 15.7 g/dL (13.5-17.5); LYMPHOCYTES 38.6 % (15-50); MCH 31.7 pg (26.0-34.0); MCHC 34.7 g/dL (31.0-37.0); MCV 91.5 fL (80.0-100.0); NEUTROPHILS 48.2 % (40-80); PLATELET COUNT 244 10x3/uL (130-400); RBC 4.95 10x6/uL (4.20-6.10); RDW 12.6 % (11.5-14.5); WBC 5.5 10x3/uL (4.8-10.8)
[2018-05-31 12:51] LABS: ALKALINE PHOSPHATASE 54 U/L (46-116); ALT (SGPT) 30 U/L (10-68); BILIRUBIN - TOTAL 0.53 mg/dL (0.2-1.3); CALC OSMOLALITY 284 mosm/kg (275-300); CALCIUM 8.6 mg/dL (8.5-10.1); CARBON DIOXIDE 28.9 mmol/L (21.0-32.0); CHLORIDE - SERUM 104 mmol/L (98-107); CREATININE - SERUM 1.1 mg/dL (0.6-1.3); GLUCOSE 103 mg/dL (74-106); POTASSIUM - SERUM 4.3 mmol/L (3.5-5.1); PROTEIN - SERUM 7.3 g/dL (6.4-8.2); SODIUM 142 mmol/L (136-145); UREA NITROGEN 17 mg/dL (7-18); eGFR NON AFRICAN AMERICAN 79 mL/min (90-120)
== END | disposition home or self-care (01) ==
LOC: D.LAB 12:09
PROVIDERS: ATTEND Internal Medicine Gastroenterology
DX: K51.90 Ulcerative colitis, unspecified, without complications (principal)

== ENCOUNTER → 2018-07-14 15:14 | Outpatient (CLI) | payer OTHER ==
[2018-05-03 10:10] VITALS: BMI 23.4
[2018-07-14 16:09] LABS: BASOPHILS 0.4 % (0-2); EOSINOPHILS 3.6 % (0-7); HEMATOCRIT 44.5 % (42.0-54.0); HEMOGLOBIN 15.9 g/dL (13.5-17.5); IMMATURE GRANULOCYTES 0.3 % (0-5); LYMPHOCYTES 19.4 % (15-50); MCH 32.2 pg (26.0-34.0); MCHC 35.7 g/dL (31.0-37.0); MCV 90.1 fL (80.0-100.0); MONOCYTES 9.1 % (2-11); NEUTROPHILS 67.2 % (40-80); PLATELET COUNT 254 10x3/uL (130-400); RBC 4.94 10x6/uL (4.20-6.10); RDW 12.8 % (11.5-14.5); WBC 9.9 10x3/uL (4.8-10.8)
[2018-07-14 16:23] LABS: ALBUMIN 4.2 g/dL (3.4-5.0); ALKALINE PHOSPHATASE 53 U/L (46-116); ALT (SGPT) 26 U/L (10-68); BILIRUBIN - TOTAL 0.55 mg/dL (0.2-1.3); CALC OSMOLALITY 281 mosm/kg (275-300); CARBON DIOXIDE 28.3 mmol/L (21.0-32.0); CHLORIDE - SERUM 103 mmol/L (98-107); CREATININE - SERUM 1.1 mg/dL (0.6-1.3); GLUCOSE 91 mg/dL (74-106); POTASSIUM - SERUM 4.2 mmol/L (3.5-5.1); PROTEIN - SERUM 7.3 g/dL (6.4-8.2); SODIUM 141 mmol/L (136-145); UREA NITROGEN 16 mg/dL (7-18); eGFR NON AFRICAN AMERICAN 79 mL/min (90-120)
== END | disposition home or self-care (01) ==
LOC: D.LAB 15:14
PROVIDERS: ATTEND Internal Medicine Gastroenterology
DX: K51.90 Ulcerative colitis, unspecified, without complications (principal)

== ENCOUNTER → 2018-08-25 11:15 | Outpatient (CLI) | payer OTHER ==
[2018-05-03 10:10] VITALS: BMI 23.4
[2018-08-25 11:36] LABS: BASOPHILS 0.6 % (0-2); EOSINOPHILS 6.7 % (0-7); HEMATOCRIT 43.4 % (42.0-54.0); HEMOGLOBIN 15.5 g/dL (13.5-17.5); IMMATURE GRANULOCYTES 0.2 % (0-5); LYMPHOCYTES 36.7 % (15-50); MCH 32.2 pg (26.0-34.0); MCHC 35.7 g/dL (31.0-37.0); MCV 90.2 fL (80.0-100.0); MEAN PLATELET VOLUME 8.7 fL (7.4-10.4); NEUTROPHILS 45.8 % (40-80); PLATELET COUNT 220 10x3/uL (130-400); RBC 4.81 10x6/uL (4.20-6.10); RDW 12.7 % (11.5-14.5); WBC 5.2 10x3/uL (4.8-10.8)
[2018-08-25 12:11] LABS: ALBUMIN 4.1 g/dL (3.4-5.0); ALKALINE PHOSPHATASE 59 U/L (46-116); ALT (SGPT) 30 U/L (10-68); BILIRUBIN - TOTAL 0.47 mg/dL (0.2-1.3); CALC OSMOLALITY 280 mosm/kg (275-300); CARBON DIOXIDE 30.1 mmol/L (21.0-32.0); CHLORIDE - SERUM 104 mmol/L (98-107); GLUCOSE 89 mg/dL (74-106); PROTEIN - SERUM 7.6 g/dL (6.4-8.2); SODIUM 141 mmol/L (136-145); UREA NITROGEN 15 mg/dL (7-18); eGFR NON AFRICAN AMERICAN 89 mL/min (90-120)
== END | disposition home or self-care (01) ==
LOC: D.LAB 11:15
PROVIDERS: ATTEND Internal Medicine Gastroenterology
DX: K51.90 Ulcerative colitis, unspecified, without complications (principal)

== ENCOUNTER → 2018-09-29 11:56 | Outpatient (CLI) | payer OTHER ==
[2018-05-03 10:10] VITALS: BMI 23.4
[2018-09-29 12:17] LABS: BASOPHILS 0.5 % (0-2); EOSINOPHILS 7.4 % (0-7); HEMATOCRIT 45.8 % (42.0-54.0); HEMOGLOBIN 16.3 g/dL (13.5-17.5); IMMATURE GRANULOCYTES 0.2 % (0-5); LYMPHOCYTES 34.1 % (15-50); MCH 32.1 pg (26.0-34.0); MCHC 35.6 g/dL (31.0-37.0); MCV 90.2 fL (80.0-100.0); MEAN PLATELET VOLUME 8.8 fL (7.4-10.4); MONOCYTES 8.4 % (2-11); NEUTROPHILS 49.4 % (40-80); PLATELET COUNT 234 10x3/uL (130-400); RBC 5.08 10x6/uL (4.20-6.10); RDW 12.6 % (11.5-14.5)
[2018-09-29 12:29] LABS: ALBUMIN 4.3 g/dL (3.4-5.0); ALKALINE PHOSPHATASE 58 U/L (46-116); ALT (SGPT) 25 U/L (10-68); BILIRUBIN - TOTAL 0.56 mg/dL (0.2-1.3); CALC OSMOLALITY 281 mosm/kg (275-300); CALCIUM 8.9 mg/dL (8.5-10.1); CHLORIDE - SERUM 103 mmol/L (98-107); CREATININE - SERUM 1.1 mg/dL (0.6-1.3); GLUCOSE 93 mg/dL (74-106); POTASSIUM - SERUM 3.9 mmol/L (3.5-5.1); PROTEIN - SERUM 7.9 g/dL (6.4-8.2); SODIUM 141 mmol/L (136-145); UREA NITROGEN 16 mg/dL (7-18); eGFR NON AFRICAN AMERICAN 79 mL/min (90-120)
== END | disposition home or self-care (01) ==
LOC: D.LAB 11:56
PROVIDERS: ATTEND Internal Medicine Gastroenterology
DX: K51.90 Ulcerative colitis, unspecified, without complications (principal)

== ENCOUNTER → 2018-12-13 09:35 | Outpatient (CLI) | payer OTHER ==
[2018-05-03 10:10] VITALS: BMI 23.4
[2018-12-13 10:09] LABS: BASOPHILS 0.8 % (0-2); EOSINOPHILS 10.9 % (0-7); HEMATOCRIT 45.8 % (42.0-54.0); HEMOGLOBIN 15.8 g/dL (13.5-17.5); LYMPHOCYTES 32.4 % (15-50); MCH 31.9 pg (26.0-34.0); MCHC 34.5 g/dL (31.0-37.0); MCV 92.5 fL (80.0-100.0); MONOCYTES 10.9 % (2-11); PLATELET COUNT 261 10x3/uL (130-400); RBC 4.95 10x6/uL (4.20-6.10); RDW 12.9 % (11.5-14.5); WBC 5.1 10x3/uL (4.8-10.8)
[2018-12-13 10:41] LABS: ALKALINE PHOSPHATASE 71 U/L (46-116); ALT (SGPT) 34 U/L (10-68); BILIRUBIN - TOTAL 0.35 mg/dL (0.2-1.3); CALC OSMOLALITY 285 mosm/kg (275-300); CARBON DIOXIDE 33.2 mmol/L (21.0-32.0); CHLORIDE - SERUM 105 mmol/L (98-107); GLUCOSE 86 mg/dL (74-106); POTASSIUM - SERUM 4.3 mmol/L (3.5-5.1); PROTEIN - SERUM 7.5 g/dL (6.4-8.2); SODIUM 143 mmol/L (136-145); UREA NITROGEN 17 mg/dL (7-18); eGFR NON AFRICAN AMERICAN 89 mL/min (90-120)
== END | disposition home or self-care (01) ==
LOC: D.LAB 09:35
PROVIDERS: ATTEND Internal Medicine Gastroenterology
DX: K51.90 Ulcerative colitis, unspecified, without complications (principal)

== ENCOUNTER 2020-06-24 10:43 | Day surgery (SDC) | payer OTHER ==
[~2020-06-24] VITALS: Ht 162.6 cm; Wt 65.9 kg
[2020-06-24 11:44] VITALS: Ht 162.6 cm; Wt 65.9 kg
--- NOTE | 2020-06-24 12:57 | NUR ---
DC TEACHING TO PT AND . VERBALIZED UNDERSTANDING. 1317 PIV DC'D, CATHETER INTACT, ASSISTING PT TO GET DRESSED. 1340 PT DC'D VIA WC BY ROSALINE TO POV WITH DRIVING.
--- NOTE | 2020-06-24 15:37 | NUR ---
LEFT VM ON PT'S 'S PHONE THAT DC PAPERS WERE LEFT [id number] PT RETURNED CALL TO SAY THEY WILL NOT RETURN TO [employer] DC [employer] AND HE ASKED THAT THEY BE SHREDDED. I INFORMED PT THAT THEY WILL BE SHREDDED. VERBALIZED UNDERSTANDING.
--- NOTE | 2020-06-25 14:19 | OP ---
PATIENT NAME: TOYIN ANGLIN MEDICAL RECORD: [id number] :78 LOCATION:D.OPS ADMISSION DATE: SURGEON: ADORE EVANS DO DATE OF OPERATION: 06/24/2020 PROCEDURE: Colonoscopy with biopsies. INDICATION FOR PROCEDURE: Ulcerative colitis. SCOPE: Olympus video pediatric colonoscope. MEDICATIONS: Propofol 260 mg IV per Anesthesia. WITHDRAWAL TIME: 7 minutes. ESTIMATED BLOOD LOSS: Minimal. COMPLICATIONS: None. FINDINGS: Informed consent was given. The patient was made comfortable with the above medication. After reaching an adequate level of sedation by slow IV push, the patient was placed on his left side. A digital rectal examination was performed and was normal. The endoscope was then advanced under direct visualization through the rectum to the cecum and into the terminal ileum. The endoscope was slowly withdrawn, and the mucosa was carefully examined. The prep quality was good. The terminal ileum appeared normal. The entire colon appeared normal without evidence of active ulcerative colitis. Retroflexion was performed in the rectum with a normal appearing rectal wall being visualized. Cold forceps biopsies were taken randomly within the rectum to evaluate for active colitis. The endoscope was then withdrawn from the patient. The patient tolerated the procedure well and there were no complications. IMPRESSION: Normal colon and terminal ileum, status post biopsies taken of the rectum regarding a history of ulcerative colitis. PLAN: 1. Discharge home when recovery parameters are met. 2. Follow up biopsy specimen results. 3. Continue current diet and medications. 4. Recall colonoscopy in 3 years regarding history of ulcerative colitis. TRANSINT:[id number] Voice Confirmation ID: [id number] DOCUMENT ID: [id number] ADORE EVANS DO at 1419 CC: [id number] DICTATION DATE: 06/24/20 1228 TRAM OPERATOR: 06/24/20 2139 [facility] 06/24/20 [place] [address]
== END 2020-06-24 13:40 | disposition home or self-care (01) ==
LOC: D.OPS 10:43
PROVIDERS: ATTEND Internal Medicine Gastroenterology
DX: K51.90 Ulcerative colitis, unspecified, without complications (principal)